=== PATIENT | female | born 1970 | race Two or more races ===

== ENCOUNTER → 2024-05-05 | Day surgery (SDC) | payer MEDICAID ==
[~2024-05-05] VITALS: Ht 157.5 cm; Wt 98.0 kg
[~2024-05-05] MED LIST: ATOR20TA50 PO; LIDOCAINE 2% (LOCAL ANESTH.) PF 5ml SDV ONE; PROPOFOL 10 MG/ML 20 ML IV ONE
[2024-05-05 09:58] VITALS: PULSE 73; RESP 17; TEMP 97.3; O2SAT 99
[2024-05-05 10:20] VITALS: BP 112/53; PULSE 74; RESP 18; O2SAT 94
== END | disposition home or self-care (01) ==
LOC: GI 07:16
PROVIDERS: ATTEND Internal Medicine Gastroenterology
DX: R10.13 Epigastric pain (principal); K29.50 Unspecified chronic gastritis without bleeding; J45.909 Unspecified asthma, uncomplicated; K21.9 Gastro-esophageal reflux disease without esophagitis; E78.5 Hyperlipidemia, unspecified; E03.9 Hypothyroidism, unspecified; E66.01 Morbid (severe) obesity due to excess calories; Z90.710 Acquired absence of both cervix and uterus; Z98.891 History of uterine scar from previous surgery; Z90.721 Acquired absence of ovaries, unilateral; Z79.899 Other long term (current) drug therapy; Z98.890 Other specified postprocedural states
CPT/HCPCS: 43239; 88305; 88312; 88342; J2001; J2704; J7030

== ENCOUNTER 2025-05-04 18:45 | Emergency (ER) | payer MEDICAID ==
[~2025-05-04] VITALS: Ht 152.4 cm; Wt 104.6 kg
[~2025-05-04 18:45] MED LIST changes: -LIDOCAINE 2% (LOCAL ANESTH.) PF 5ml SDV ONE; -PROPOFOL 10 MG/ML 20 ML IV ONE
--- NOTE | 2025-05-04 19:21 | ED.PDOC ---
GI ASSESSMENT HPI Comments This is a 55 year old morbidly obese female presenting to the ED with chief complaint of abdominal pain. Patient reports that she has been experiencing chronic abdominal pain with intermittent nausea, vomiting, and bloating for the past few months. Patient relays that she was diagnosed before with H. Pylori and given a regiment of antibiotics, however, she was confirmed to still have a present infection along with multiple other GI concerns. Patient states she is following up with a GI specialist regarding her symptoms. Patient denies any diarrhea, fever, chills, dizziness, headache, hematemesis, or melena. Vital signs were stable on arrival. Chief Complaint: Abdominal Pain Time Seen by MD: 19:17 Primary Care Provider: PAVEL Reviewed Notes: Nurses Notes, Medications, Allergies Allergies: Coded Allergies: NO KNOWN ALLERGIES (Unverified , 07/22/15) Home Meds Active Scripts Simethicone (Simethicone) 80 Mg Chw, 1 TAB PO Q8HR, #20 TAB Prov:JACQUELINE IRWIN PAC 05/04/25 Dicyclomine Hcl (BENTYL CAPSULE) 10 Mg Cp, 1 CAP PO Q6HPRN, #20 CAP 0 Refills Prov:JACQUELINE IRWIN PAC 05/04/25 Ondansetron Odt 4MG Tab (ZOFRAN PO) 4 Mg Tb, 4 MG PO Q6HP PRN, #20 TAB ODT TAB-DISSOLVE IN MOUTH, THEN SWALLOW Prov:JACQUELINE IRWIN PAC 05/04/25 Reported Medications Atorvastatin Calcium (ATORVASTATIN CALCIUM) 20 Mg Tab, 20 MG PO DAILY, TAB 05/04/24 Information Source: Patient, Spouse Mode of Arrival: Ambulatory Timing: Days Duration: Since onset Prehospital treatment: None Quality: Aching Vomitus: Watery Stool: Normal Severity: Moderate Recent: None Recent Hx of: None Pain Location: Diffuse, Epigastric Modifying Factors: Nothing Associated sign and symptoms: Nausea, Vomiting, Abdominal Pain Past Medical History PAST MEDICAL HISTORY: Gallstones, High Lipids Past Medical History (Other): H. Pylori, gastritis, fatty liver Surgical History: Cholecystectomy, , Hysterectomy SENIOR ERP CONSULTANT History: No Pertinent SENIOR ERP CONSULTANT History Family History Family History: Unobtainable Social History Smoker: Non-Smoker Alcohol: Denies ETOH Use Drugs: Denies Drug Use Lives In: Home Constitutional: denies: chills, diaphoresis, fatigue, fever, malaise, sweats, weakness, others EENTM: denies: blurred vision, double vision, ear bleeding, ear discharge, ear drainage, ear pain, ear ringing, eye pain, eye redness, hearing loss, mouth pain, mouth swelling, nasal discharge, nose bleeding, nose congestion, nose pain, photophobia, tearing, throat pain, throat swelling, voice changes, others Respiratory: denies: cough, hemoptysis, orthopnea, SOB at rest, shortness of breath, SOB with excertion, stridor, wheezing, others Cardiovascular: denies: chest pain, dizzy spells, diaphoresis, Dyspnea on exertion, edema, irregular heart beat, left arm pain, lightheadedness, palpitations, PND, syncope, others Gastrointestinal: reports: abdominal pain, nausea, vomiting, others (Bloating); denies: abdomen distended, blood streaked bowels, constipated, diarrhea, dysphagia, difficulty swallowing, hematemesis, melena, poor appetite, poor fluid intake, rectal bleeding, rectal pain Genitourinary: denies: abnormal vagina bleeding, burning, dyspareunia, dysuria, flank pain, frequency, hematuria, incontinence, pain, , vagina discharge, urgency, others Neurological: denies: dizziness, fainting, headache, left sided numbness, left sided weakness, numbness, paresthesia, pre-existing deficit, right sided numbness, right sided weakness, seizure, speech problems, tingling, tremors, weakness, others Musculoskeletal: denies: back pain, gout, joint pain, joint swelling, muscle pain, muscle stiffness, neck pain, others Integumetry: denies: bruises, change in color, change in hair/nails, dryness, laceration, lesions, lumps, rash, wounds, others Allergic/Immunocompromised: denies: Difficulty Healing, Frequent Infections, Hives, Itching, others Hematologic/Lymphatic: denies: anemia, blood clots, easy bleeding, easy bruising, swollen glands, others Endocrine: denies: excessive hunger, excessive sweating, excessive thirst, excessive urination, flushing, intolerance to cold, intolerance to heat, unexplained weight gain, unexplained weight loss, others Psychiatric: denies: anxiety, bipolar disorder, depression, hopeless, panic disorder, schizophrenia, sleepless, suicidal, others All Other Systems: Reviewed and Negative Physical Exam General Appearance: Moderate Distress ([id number]-efvflafk distress due to abdominal pain concerns.), Obese HEENT: Normal ENT Inspection, Pharynx Normal, TMs Normal Neck: Full Range of Motion, Non-Tender, Normal, Normal Inspection Respiratory: Chest Non-Tender, Lungs Clear, No Accessory Muscle Use, No Respiratory Distress, Normal Breath Sounds Cardiovascular: No Edema, No JVD, No Murmur, No Gallop, Normal Peripheral Pulses, Regular Rate/Rhythm Breast Exam: Deferred Gastrointestinal: Other (Diffuse epigastric tenderness to palpation throughout. Difficult to assess due to body habitus. Patient states she is bloated.) Genitalia: Deferred Pelvic: Deferred Rectal: Deferred Extremities: No calf tenderness, Normal capillary refill, Normal inspection, Normal range of motion, Non-tender, No pedal edema Neurologic: Alert, No Motor Deficits, Normal Affect, Normal Mood, No Sensory Deficits Cerebellar Function: Normal Reflexes: Normal Skin: Dry, Normal Color, Warm Lymphatic: No Adenopathy Was a procedure done? Was a procedure done?: No GI differential Dx Differential Diagnosis: Other (Chronic gastritis, H pylori) X-Ray, Labs, Meds, VS Vital Signs Date Time Temp Pulse Resp B/P (MAP) Pulse Ox O2 Delivery O2 Flow Rate FiO2 05/04/25 20:53 97.6 72 20 139/66 (90) 97 97.6 05/04/25 20:30 Room Air* 0 21 05/04/25 18:50 98.0 72 18 145/79 (101) 97 98.0 Current Medications Medications (Trade) Dose Ordered Sig/Lewis Route Start Time Stop Time Status Last Admin Dicyclomine HCl (Bentyl Injection) 20 mg ONCE ONCE IM 05/04/25 19:30 05/04/25 19:31 DC 05/04/25 20:27 Ondansetron HCl (Zofran Po) 4 mg ONCE ONCE PO 05/04/25 19:30 05/04/25 19:31 DC 05/04/25 20:27 Al Hydrox/Mg Hydrox/Simethicone (Maalox Plus) 15 ml ONCE ONCE PO 05/04/25 19:30 05/04/25 19:31 DC 05/04/25 20:26 Lidocaine HCl (Xylocaine 2% Viscous) 3 ml ONCE ONCE PO 05/04/25 19:30 05/04/25 19:31 DC 05/04/25 20:26 X-Ray, Labs, Meds, VS Comment Spent extensive time discussing the patient's concerns with her and her . Advised that if the patient continues to have confirmed H pylori issues status post antibiotics, she needs to follow up with the primary care doctor for medication management to continue addressing that concern. Additionally, patient has chronic gastritis has never been definitively managed by GI. Advised continue follow up with primary care provider and business administration program chair for management of these chronic intra-abdominal concerns. Patient responded well to medication dispensed. Advised patient I will send her home with some supportive medication. Time of 1ST Reevaluation: 20:49 Reevaluation 1ST: Improved Consultation: PCP Patient Education/Counseling: Diagnosis, Treatment Family Education/Counseling: Diagnosis, Treatment SEPSIS Sepsis Screen Recent Procedure: No On Antibiotic Therapy: No Respiratory Rate >20: No Heart Rate >90: No Temp<36 C (96.8 F) or >38.3 C: No SBP <90 or MAP <65 mmHG: No New Acute Mental Status Change: No Is the patient on CPAP, BIPAP,: No Vital Signs Date Time Temp Pulse Resp B/P (MAP) Pulse Ox O2 Delivery O2 Flow Rate FiO2 05/04/25 20:53 97.6 72 20 139/66 (90) 97 97.6 05/04/25 20:30 Room Air* 0 21 05/04/25 18:50 98.0 72 18 145/79 (101) 97 98.0 Medications Medications Dose Ordered Sig/Lewis Route Start Time Stop Time Status Last Admin Dose Admin Al Hydrox/Mg Hydrox/Simethicone 15 ml ONCE ONCE PO 05/04/25 19:30 05/04/25 19:31 DC 05/04/25 20:26 Dicyclomine HCl 20 mg ONCE ONCE IM 05/04/25 19:30 05/04/25 19:31 DC 05/04/25 20:27 Lidocaine HCl 3 ml ONCE ONCE PO 05/04/25 19:30 05/04/25 19:31 DC 05/04/25 20:26 Ondansetron HCl 4 mg ONCE ONCE PO 05/04/25 19:30 05/04/25 19:31 DC 05/04/25 20:27 Departure 1 Departure Time of Disposition: 20:50 Impression: Primary Impression: Chronic gastritis Disposition: 01 HOME / SELF CARE / HOMELESS Condition: Stable Additional Instructions: Advised patient utilize medication as needed and additionally, patient should maintain follow up appointments with primary care provider and business administration program chair to address her multiple intra-abdominal concerns. e-Prescriptions Simethicone (Simethicone) 80 Mg Chw 1 TAB PO Q8HR, #20 TAB Prov: ALIDAJACQUELINE REESE PAC 05/04/25 Dicyclomine Hcl (BENTYL CAPSULE) 10 Mg Cp 1 CAP PO Q6HPRN, #20 CAP 0 Refills Prov: ALIDAJACQUELINE REESE 05/04/25 Ondansetron Odt 4MG Tab (ZOFRAN PO) 4 Mg Tb 4 MG PO Q6HP PRN, #20 TAB ODT TAB-DISSOLVE IN MOUTH, THEN SWALLOW Prov: JACQUELINE IRWIN 05/04/25 Discharged With: Self, Spouse Critical Care Note Critical Care Time?: No Stability Stability form required: No Heart Score Heart Score: Heart Score Response (Comments) Value History N/A 0 EKG N/A 0 Age N/A 0 Risk Factors N/A 0 Troponin N/A 0 Total 0 I personally scribed for JACQUELINE IRWIN PAC ([email or web address]) on 05/04/25 at 19:21. Electronically submitted by José Miguel Crouch ([email or web address]). I personally scribed for JACQUELINE IRWNI PAC ([email or web address]) on 05/04/25 at 19:26. Electronically submitted by José Miguel Crouch ([email or web address]). JACQUELINE IRWIN PAC May 04, 2025 19:21
[2025-05-04] MEDS ORDERED: MAALOX PLUS or MAALOX 30 ML ONE (20:21)
[2025-05-04] MEDS ORDERED: LIDOCAINE VISCOUS 2% 15ML UD ONE (20:21)
[2025-05-04] MEDS ORDERED: ONDANSETRON ODT 4 MG TAB ONE (20:22)
[2025-05-04] MEDS: LIDOCAINE VISCOUS 2% 15ML UD PO ONE (20:26)
[2025-05-04] MEDS: MAALOX PLUS or MAALOX 30 ML PO ONE (20:26)
[2025-05-04] MEDS: ONDANSETRON ODT 4 MG TAB PO ONE (20:27)
[2025-05-04] MEDS: DICYCLOMINE HCL (10MG/ML) 2 ML AMPULE IM ONE (20:27)
[2025-05-04] MEDS ORDERED: DICY10CA PO (20:52)
[2025-05-04] MEDS ORDERED: ZOFR4T PO (20:52)
[2025-05-04] MEDS ORDERED: SIME80CH49 PO (20:52)
[2025-05-04 20:53] VITALS: BP 139/66; PULSE 72; RESP 20; TEMP 97.6; O2SAT 97
[2025-05-04] MEDS: HYDROcodone-ACET 5/325MG TAB PO ONE (21:42)
== END 2025-05-04 21:48 | disposition home or self-care (01) ==
LOC: ER 18:49
DX: G89.29 Other chronic pain (principal); K29.50 Unspecified chronic gastritis without bleeding; E78.5 Hyperlipidemia, unspecified; Z79.899 Other long term (current) drug therapy; Z87.19 Personal history of other diseases of the digestive system; Z90.49 Acquired absence of other specified parts of digestive tract; Z90.710 Acquired absence of both cervix and uterus; Z98.890 Other specified postprocedural states
CPT/HCPCS: 96372; 99284; J0500; Q0162

== ENCOUNTER → 2025-06-01 | Day surgery (SDC) | payer OTHER ==
[~2025-06-01] VITALS: Ht 152.4 cm; Wt 99.8 kg
[~2025-06-01] MED LIST changes: -ATOR20TA50 PO; +LIDOCAINE 1% (LOCAL ANESTH.) PF 5ml SDV IJ ONE; +ONDANSETRON HCL 4 MG/2 ML VIAL ONE; +PROPOFOL 10 MG/ML 20 ML IV ONE
--- NOTE | 2025-06-01 13:00 | DVHHP2 ---
GI H&P Pre-Op Assessment Date: 06/01/25 Chief complaint: Positive fit test HPI: per clinic note Past medical history: per clinic note Past surgical history: per clinic note Family history: per clinic note Physical exam: General: NAD, AAOX3 HEENT: PERRL, no scleral icterus, normal hearing, gums without lesions or bleeding, oropharynx clear without erythema or exudate. Neck: Supple without enlargement of the thyroid, or lymphadenopathy. Chest: Normal size and shape, no tenderness, lung chin clear to auscultation and percussion, nonlabored breathing. Heart: RRR, no murmur Abdomen: non-distended, no tenderness to palpation, +BS, no hepatosplenomegaly Extremities: no edema Neurological: CN II-XII intact, sensation intact in all extremities, 5+ strength in all extremities Skin: No rashes, No jaundice Assessment: - Positive fit test Plan: - Colonoscopy - Risks (bleeding, infection, perforation, reaction to sedation medications and cardiopulmonary arrest) and benefit of the procedure were explained to patient. Patient agrees to undergo the procedure. SHAUN CARY MD Jun 01, 2025 13:00
[2025-06-01 14:06] VITALS: PULSE 74; RESP 20; O2SAT 95
--- NOTE | 2025-06-01 14:08 | DVHOP2 ---
Operative Report DATE OF OPERATION: 06/01/25 PROCEDURE: Colonoscopy. PREOPERATIVE INDICATION: The patient is a 55 -year-old female undergoing colonoscopy for positive fit test. POSTOPERATIVE DIAGNOSES: 1. Normal colonoscopy PROCEDURE PERFORMED BY: Italo Loomis M.D. SCOPE: Olympus videocolonoscope. ASA CLASS: 3 PREOPERATIVE MEDICATIONS: MAC with Lorenzo CONE SEWER PROCEDURE IN DETAIL: After obtaining an informed consent, the patient was placed on left lateral decubitus position. She was then sedated with the above medications. A rectal examination was performed that was normal. The colonos cope was then passed through the anus into the rectosigmoid and through the descending, transverse, and ascending colon up to the cecum with visualization of the appendiceal orifice, base of the cecum and the ileocecal valve. No mass or polyp was observed. The colonoscope was then withdrawn. The patient tolerated the procedure well without difficulty. WITHDRAWAL TIME: 6 minutes QUALITY OF THE PREP: [place] Bowel Prep score: 7 COMPLICATIONS : None SPECIMENS: None DISPOSITION: D/C to home PLAN: 1. Repeat colonoscopy in 10 years for colon cancer screening ITALO LOOMIS MD Jun 01, 2025 14:08
--- NOTE | 2025-06-01 14:09 | DVHDS2 ---
Physician Discharge Progress N Final Diagnosis: Normal colonoscopy Operations or Procedures: Operations or Procedures Colonoscopy Condition on Discharge: Good Disposition: Home Discharge Instructions: Diet: Regular Activity: No Restrictions, As Tolerated Medications: Resume previous home medications Follow Up Care: Discharge Statement: "Patient was advised to return to the ER or call 911 if any headaches, dizziness, shortness of breath, chest pain, abdominal pain, bleeding, fevers, or worsening of medical condition. Patient was counseled about treatment plan, medications, possible side effects, patientverbalized understanding. All questions were answered to the best of my ability. This discharge took greater then 30 minutes in planning, reviewing documentation, counseling the patient, and discussing with other team members." SHAUN CARY MD Jun 01, 2025 14:09
[2025-06-01 14:16] VITALS: PULSE 67; RESP 17; O2SAT 96
[2025-06-01 14:26] VITALS: PULSE 71; RESP 19; O2SAT 100
[2025-06-01 15:00] VITALS: BP 107/57; PULSE 74; RESP 15; O2SAT 96
== END | disposition home or self-care (01) ==
LOC: GI 10:03
PROVIDERS: ATTEND Internal Medicine Gastroenterology
DX: R19.5 Other fecal abnormalities (principal); K75.81 Nonalcoholic steatohepatitis (NASH); R10.9 Unspecified abdominal pain; E66.01 Morbid (severe) obesity due to excess calories; Z98.41 Cataract extraction status, right eye; Z98.42 Cataract extraction status, left eye; Z90.49 Acquired absence of other specified parts of digestive tract; Z90.710 Acquired absence of both cervix and uterus
CPT/HCPCS: 45378; J2405; J2704; J7030

== ENCOUNTER → 2025-09-07 | Day surgery (SDC) | payer MEDICAID ==
[~2025-09-07] VITALS: Ht 152.4 cm; Wt 99.8 kg
[~2025-09-07] MED LIST changes: +HYDROmorphone HCL 2 MG/ML VL/or syr IV PRN; +KETAMINE 50mg/ML 1ml syringe ONE; +KETOROLAC TROMETH 30 MG/ML 1ML VIAL IV ONE; -LIDOCAINE 1% (LOCAL ANESTH.) PF 5ml SDV IJ ONE; +LIDOCAINE 1% (LOCAL ANESTH.) PF 5ml SDV ONE; +METOCLOPRAMIDE HCL 5MG/ml INJ 2ml VIAL IV PRN; +MIDAZOLAM HCL 2MG/2ML 2ml VIAL (1mg/ml) ONE; +MORPHINE SULFATE 4 MG/ML SYR/VIAL IV PRN; +MORPHINE SULFATE INJ 2 MG/ml SYRG IV PRN; +ONDANSETRON HCL 4 MG/2 ML VIAL IV ONE; -ONDANSETRON HCL 4 MG/2 ML VIAL ONE; +SODIUM CHLORIDE LOCK 10 ML ONE; +fentaNYL CITRATE 100 MCG/2 ML VL ONE
[2025-09-07 10:35] VITALS: PULSE 77; RESP 18; TEMP 98.1; O2SAT 100
[2025-09-07 10:50] VITALS: O2SAT 96
[2025-09-07 11:05] VITALS: BP 138/87; PULSE 71; RESP 14
--- NOTE | 2025-09-08 11:07 | DVHDS2 ---
Physician Discharge Progress N Final Diagnosis: Mild gastritis Operations or Procedures: Operations or Procedures EGD with cold biopsies Condition on Discharge: Good Disposition: Home Discharge Instructions: Diet: Regular Activity: No Restrictions, As Tolerated Medications: Resume with previous home medications Follow Up Care: Discharge Statement: "Patient was advised to return to the ER or call 911 if any headaches, dizziness, shortness of breath, chest pain, abdominal pain, bleeding, fevers, or worsening of medical condition. Patient was counseled about treatment plan, medications, possible side effects, patientverbalized understanding. All questions were answered to the best of my ability. This discharge took greater then 30 minutes in planning, reviewing documenta tion, counseling the patient, and discussing with other team members." SHAUN CARY MD Sep 07, 2025 10:37
--- NOTE | 2025-09-08 11:07 | DVHHP2 ---
GI H&P Pre-Op Assessment Date: 09/07/25 Chief complaint: epigastric pain HPI: per clinic note Past medical history: per clinic note Past surgical history: per clinic note Family history: per clinic note Physical exam: General: NAD, AAOX3 HEENT: PERRL, no scleral icterus, normal hearing, gums without lesions or b leeding, oropharynx clear without erythema or exudate. Neck: Supple without enlargement of the thyroid, or lymphadenopathy. Chest: Normal size and shape, no tenderness, lung chin clear to auscultation and percussion, nonlabored breathing. Heart: RRR, no murmur Abdomen: non-distended, no tenderness to palpation, +BS, no hepatosplenomegaly Extremities: no edema Neurological: CN II-XII intact, sensation intact in all extremities, 5+ strength in all extremities Skin: No rashes, No jaundice Assessment: - epigastric pain Plan: - EGD - Risks (bleeding, infection, perforation, reaction to sedation medications and cardiopulmonary arrest) and benefit of the procedure were explained to patient. Patient agrees to undergo the procedure. SHAUN CARY MD Sep 07, 2025 10:35
--- NOTE | 2025-09-08 11:07 | DVHOP2 ---
Operative Report DATE OF OPERATION: 09/07/25 PROCEDURE: Upper Endoscopy. PREOPERATIVE INDICATION: The patient is a 55 -year-old female undergoing endoscopy for epigastric pain. POSTOPERATIVE DIAGNOSES: 1. Mild gastritis PROCEDURE PERFORMED BY: Italo Loomis SCOPE: Olympus videoendoscope. ASA CLASS: 3 PREOPERATIVE MEDICATIONS: MAC with Dr Portillo PROCEDURE IN DETAIL: After obtaining an informed consent, the patient was placed on her back. The patient was then sedated with the above medications. A bite block was placed between her teeth. The endoscope was then passed through the oropharynx, into the esophagus, and through the stomach and pylorus up to the second and third part of the duodenum. The duodenum was normal in appearance. There was mild gastritis. Gastric biopsies were obtained using cold forceps. The GE junction was normal in appearance at 33 cm. The esophagus was normal in appearance. The endoscope was then withdrawn. The patient tolerated the procedure well without difficulty. COMPLICATIONS : None SPECIMENS: Gastric biopsies DISPOSITION: D/C to home PLAN: 1. Await for biopsy result 2. Continue with omeprazole ITALO LOOMIS MD Sep 07, 2025 10:37
== END | disposition home or self-care (01) ==
LOC: GI 08:44
PROVIDERS: ATTEND Internal Medicine Gastroenterology
DX: R10.13 Epigastric pain (principal); K29.50 Unspecified chronic gastritis without bleeding; K75.81 Nonalcoholic steatohepatitis (NASH); K21.9 Gastro-esophageal reflux disease without esophagitis; E78.5 Hyperlipidemia, unspecified; E66.01 Morbid (severe) obesity due to excess calories; Z68.41 Body mass index [BMI] 40.0-44.9, adult; Z79.899 Other long term (current) drug therapy; Z90.710 Acquired absence of both cervix and uterus; Z98.890 Other specified postprocedural states
CPT/HCPCS: 43239; 88305; 88313; 88342; J2250; J2405; J2704; J3010; J7030